=== PATIENT | male | born 2005 | race Caucasian/White ===

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

== ENCOUNTER → 2024-02-14 | Outpatient (CLI) | payer BC ==
[2024-02-14 18:06] LABS: Basophils # (A) 0.05 X 10*3/uL (0.00-0.10); Basophils % (A) 0.9 %; Eosinophils # (A) 0.12 X 10*3/uL (0.04-0.35); Eosinophils % (A) 2.1 %; HCT 46.5 % (39.6-50.0); HGB 14.6 g/dL (13.0-17.0); Lymphocytes # (A) 1.45 X 10*3/uL (0.90-5.00); Lymphocytes % (A) 25.7 %; MCH 26.7 pg (27.0-32.0); MCHC 31.4 g/dL (32.0-37.0); Mean Platelet Volume 11.2 FL (9.5-12.2); Monocytes # (A) 0.42 X 10*3/uL (0.20-1.00); Monocytes % (A) 7.4 %; NRBC Per 100 WBC 0 X 10*3/uL (0.00-0.01); Neutrophils # (A) 3.59 X 10*3/uL (1.80-7.70); Neutrophils % (A) 63.5 %; Platelet Count 274 X 10*3/uL (140-440); RBC 5.47 X 10*6/uL (4.40-5.60); RDW 12.4 % (11.5-14.5); WBC 5.65 X 10*3/uL (4.50-10.00)
[2024-02-14 18:22] LABS: ALT 36 U/L (10-49); AST 23 U/L (14-35); Albumin 5.1 g/dL (3.8-4.9); Albumin/Globulin Ratio 1.96 Ratio (1.60-3.17); Alkaline Phosphatase 106 U/L (41-126); BUN/Creat Ratio 12.33 Ratio (12.00-20.00); Blood Urea Nitrogen 11.1 mg/dL (9.0-27.0); Carbon Dioxide 26.2 mmol/L (21.6-31.8); Chloride 102 mmol/L (96-109); Globulin 2.6 g/dL (1.6-3.3); Glucose 88 mg/dL (70-110); Potassium 4.6 mmol/L (3.5-5.5); Sodium 140 mmol/L (135-145); Total Bilirubin 0.5 mg/dL (0.3-1.2); Total Protein 7.7 g/dL (6.2-8.2)
== END | disposition home or self-care (01) ==
LOC: LABWHC1 12:59
PROVIDERS: ATTEND Internal Medicine Gastroenterology
DX: R19.7 Diarrhea, unspecified (principal)
CPT/HCPCS: 36415; 80053; 85025

== ENCOUNTER 2024-03-19 12:35 | Day surgery (SDC) | payer BC ==
[2024-03-19 13:39] VITALS: TEMP 99.3
[2024-03-19] MEDS ORDERED: LACTATED RINGERS 1,000 ML IV SCH (13:51)
[2024-03-19] MEDS: IV FLUID CONTINUATION 1,000 ML IV ONE (13:51)
[2024-03-19] MEDS ORDERED: LIDOCAINE 1% (10MG/ML) FOR IV START INTRADERMA PRN (13:51)
[2024-03-19] MEDS ORDERED: PROPOFOL 10 MG/ML 20 ML VIAL IV ONE (14:26)
[2024-03-19] MEDS ORDERED: LIDOCAINE 1% INJ 10MG/ML (20 ML MDV) ONE (14:26)
--- NOTE | 2024-03-19 14:46 | P.PCN ---
Date of Procedure: 03/19/24 Procedure(s) Performed: BRIEF HISTORY: Patient is a 89-year-old pleasant white male scheduled for an elective colonoscopy as a part of chronic diarrhea for the last 1 year duration. He has been having 10-12 bowel movements daily. No blood or mucus in the stool. PROCEDURE PERFORMED: Colonoscopy with biopsy. PREOPERATIVE DIAGNOSIS: Chronic diarrhea of 1 year duration. IV sedation per Anesthesia. PROCEDURE: After informed consent was obtained, the patient, was brought into the endoscopy unit. IV sedation was administered by Anesthesia under continuous monitoring. Digital rectal examination was normal. Initially the Olympus CF-160 flexible video colonoscope was then inserted in the rectum, gradually advanced into the cecum without any difficulty. Careful examination was performed as the scope was gradually being withdrawn. Ileocecal valve and the appendiceal orifice were visualized and appeared normal. Ileum was divided 20 cm visualized and appeared normal. Prep was excellent. Mucosa of the cecum, ascending colon, transverse colon, descending colon, sigmoid colon, and rectum appeared normal. Biopsies were done from the ascending and descending colon rule out microscopic/collagenous colitis. In the proximal rectum there was a 4 mm polyp that was removed by cold biopsy. Retroflexion was performed in the rectum and no lesions were seen. The patient tolerated the procedure well. IMPRESSION: 4 mm proximal rectal colon polyp s/p biopsy Rest of the colon appeared normal Terminal ileum appeared normal RECOMMENDATIONS: Findings of this examination were discussed with the patient as well as his family. He was advised to follow-up with the biopsy results. He will be seen in the office in 2 weeks..
[2024-03-19 14:52] VITALS: RESP 14
[2024-03-19 15:07] VITALS: BP 100/64; PULSE 60
== END 2024-03-19 15:17 | disposition home or self-care (01) ==
LOC: ORWHC2ENDO 12:35
PROVIDERS: ATTEND Internal Medicine Gastroenterology
DX: C7A.026 Malignant carcinoid tumor of the rectum (principal); K52.9 Noninfective gastroenteritis and colitis, unspecified; F41.9 Anxiety disorder, unspecified; K21.9 Gastro-esophageal reflux disease without esophagitis; Z98.890 Other specified postprocedural states; Z79.899 Other long term (current) drug therapy
CPT/HCPCS: 88305; 45380; J2001; J2704

== ENCOUNTER 2024-09-16 10:09 | Day surgery (SDC) | payer BC ==
[2024-09-16] MEDS ORDERED: LIDOCAINE 1% (10MG/ML) FOR IV START INTRADERMA PRN (10:52)
[2024-09-16 11:06] VITALS: TEMP 97.1
[2024-09-16] MEDS: LACTATED RINGERS 1,000 ML IV SCH (11:11)
[2024-09-16] MEDS: IV FLUID CONTINUATION 1,000 ML IV ONE (11:11)
[2024-09-16] MEDS ORDERED: PROPOFOL 10 MG/ML 20 ML VIAL IV ONE (12:15)
--- NOTE | 2024-09-16 12:26 | P.PCN ---
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 He was noted to have a 4 mm proximal rectal polyp that was removed by cold biopsy and biopsy revealed well-differentiated carcinoid tumor. He scheduled for follow-up flexible sigmoidoscopy today. PROCEDURE PERFORMED: Flexible sigmoidoscopy with biopsy PREOPERATIVE DIAGNOSIS: Follow-up rectal carcinoid diagnosed in March 2024. IV sedation per Anesthesia. PROCEDURE: After informed consent was obtained, the patient, was brought into the endoscopy unit. IV sedation was administered by Anesthesia under continuous monitoring. Digital rectal examination was normal. Initially the Olympus CF-160 flexible video colonoscope was then inserted in the rectum, gradually advanced into the descending colon. Careful examination was performed. Mucosa of the descending colon, sigmoid colon, and rectum appeared normal. Rectosigmoid colon at 20 cm from the anal was it was a 2 mm polyp that was removed by cold biopsy. Retroflexion was performed in the rectum and no lesions were seen. The patient tolerated the procedure well. IMPRESSION: 2 millimeter rectosigmoid polyp status post cold biopsy Rectum appeared normal RECOMMENDATIONS: Findings of this examination were discussed with the patient as well as his family.. He was advised to follow with the biopsy results. Recommended repeat colonoscopy in 1 year.
[2024-09-16 12:51] VITALS: BP 108/65; PULSE 64; RESP 18
== END 2024-09-16 13:07 | disposition home or self-care (01) ==
LOC: ORWHC2ENDO 10:09
PROVIDERS: ATTEND Internal Medicine Gastroenterology
DX: K63.5 Polyp of colon (principal); K62.1 Rectal polyp; F41.9 Anxiety disorder, unspecified; K21.9 Gastro-esophageal reflux disease without esophagitis; Z79.899 Other long term (current) drug therapy; Z91.030 Bee allergy status
CPT/HCPCS: 88305; 45331; J2704